=== PATIENT | male | born 1945 | race Caucasian/White ===

== ENCOUNTER 2020-06-19 11:44 | Emergency (ER) | payer MEDICARE, OTHER ==
[~2020-06-19] VITALS: Ht 175.3 cm; Wt 75.8 kg
--- NOTE | 2020-06-19 12:05 | NUR ---
PT CAME IN CO OF "FLUTTERING IN MY CHEST X 3DAYS". PT REPORTS HX OF AFIB AND WAS TOLD TO "TAKE MAGNESIUM SUPPLMENT". PT DENIES USE OF BLOOD THINNERS AND CHEST PAIN. EKG COMPLETE. PT CONNECTED TO ALL MONITORING EQUIPMENT. MD IS BEDSIDE FOR ASSESSMENT.
[2020-06-19] MEDS ORDERED: DILTIAZEM 5 MG/ML, 5ML ONE (12:18)
[2020-06-19] MEDS ORDERED: SODIUM CHLORIDE FLUSH 10ML SYR IVF ONE (12:30)
[2020-06-19] MEDS ORDERED: DILTIAZEM 5 MG/ML, 5ML IV ONE (12:30)
[2020-06-19 12:33] LABS: BASOPHILS % (AUTO) 1 % (0-1); EOSINOPHILS % (AUTO) 2 % (1-7); LYMPHOCYTES % (AUTO) 20 % (22-44); MEAN CORPUSCULAR HEMOGLOBIN 32.2 pg (27.5-34.5); MEAN CORPUSCULAR HGB CONC 33.2 g/dL (33.2-36.2); MEAN PLATELET VOLUME 8.3 fL (7.4-10.4); MONOCYTES % (AUTO) 9 % (2-9); NEUTROPHILS % (AUTO) 69 % (42-75); PLATELET COUNT 203 x10^3/uL (130-400); RED BLOOD COUNT 4.56 x10^6/uL (4.38-5.82); RED CELL DISTRIBUTION WIDTH 12.8 % (9.4-14.8)
[2020-06-19 12:38] LABS: MD NO
[2020-06-19 12:45] LABS: ALANINE AMINOTRANSFERASE 32 U/L (12-78); ANION GAP 7 mmol/L (5-15); CHLORIDE 105 mmol/L (98-107); CREATININE 1.12 mg/dL (0.7-1.3)
[2020-06-19 12:49] LABS: ALKALINE PHOSPHATASE 93 U/L (45-117); BILIRUBIN,TOTAL 0.4 mg/dL (0.2-1.0); TOTAL PROTEIN 7.4 g/dL (6.4-8.2); TROPONIN I < 0.015 ng/mL (0.000-0.045)
--- NOTE | 2020-06-19 12:54 | NUR ---
pt resting in [facility]. pt's aox4. resps even and unlabored. all monitors in place. call light within reach. pt denies any needs or concerns at this time.
--- NOTE | 2020-06-19 13:35 | NUR ---
[place] pt's aox4. resps even and unlabored. all monitors in place. pt's hr is 70-80's at this time. pt denies any needs or concerns at this time.
--- NOTE | 2020-06-19 15:30 | NUR ---
CONSENT SIGNED BY PATIENT. PT HAD NO FURTHER QUESTIONS AFTER GOING OVER THE PROCEDURE WITH DR CONTEH.
[2020-06-19] MEDS ORDERED: PROPOFOL 10 MG/ML, 20ML IV ONE (16:00)
[2020-06-19] MEDS ORDERED: PROPOFOL 10 MG/ML, 20ML ONE (16:01)
[2020-06-19 16:19] VITALS: BP 129/67
--- NOTE | 2020-06-19 16:19 | NUR ---
PT SINUS RHYTHM ON THE MONITOR. MD AWARE. EKG COMPLETE.
--- NOTE | 2020-06-19 16:30 | NUR ---
PT RESTING IN [facility]. PT'S AOX4. RESPS EVEN AND UNLABORED. ALL MONITORS IN PLACE. CALL LIGHT WITHIN REACH. AWAITING DC.
--- NOTE | 2020-06-19 16:50 | NUR ---
Patient given discharge instructions and they have confirmed that they understand the instructions.
== END 2020-06-19 16:51 | disposition home or self-care (01) ==
LOC: ED 13:15
DX: I48.91 Unspecified atrial fibrillation (principal); R06.02 Shortness of breath; R00.2 Palpitations; R42 Dizziness and giddiness; R07.89 Other chest pain
CPT/HCPCS: 36415; 71045; 80053; 83735; 84100; 84484; 85025; 93005; 96374; 99285